=== PATIENT | male | born 1975 ===

== ENCOUNTER 2018-02-19 14:56 | Emergency (ER) | payer BC ==
[2018-02-19 15:12] VITALS: TEMP 98.3
--- NOTE | 2018-02-19 15:35 | ED PDOC ---
HPI: Abdomen History Per: Patient History/Exam Limitations: no limitations Onset/Duration Of Symptoms: Days Outside of [place] travel?: No Current Symptoms Are (Timing): Still Present Pain Scale Rating Of: 4 Location Of Pain/Discomfort: Suprapubic Quality Of Discomfort: Dull Associated Symptoms: Fever, Nausea. denies: Chills, Vomiting Exacerbating Factors: None Alleviating Factors: None Last Bowel Movement: Today <Pearl Bledsoe - Last Filed: 02/19/18 19:04> <Arturo Stahl - Last Filed: 02/19/18 19:53> Time Seen by Provider: 02/19/18 15:17 Chief Complaint (Nursing): Abdominal Pain Additional Complaint(s): CC: abdominal pain HPI: 42 YO Male with no sig PMH of seen in [facility] ED for abdominal pain. Pt states that her symptoms started 1 week ago with cough, cold-flu like symptoms. Pt states that he went to his MD Friday was told that he had a viral infection. Subsequently, pt started having abdominal pain and nausea since Friday, dull pain in the supra-pubic area, associated with nausea, no episodes of emesis, normal BM, last one today. Seen in clinic yesterday and was told to come to the ER if pain persists. Symptoms associated with fever, Tmax this week was 103 last night, resolved after PO Tylenol. Denies dysuria, hematuria, urinary frequency, chills, night sweats. 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 SurgH: testicular surgery as child FH: DM in mother, colon CA in older brother SH: denies smoking, social ETOH and denies illicit drug use Meds: Tylenol Allergies: NDKA (Pearl Bledsoe) Supervising Attending Note <Pearl Bledsoe - Last Filed: 02/19/18 19:04> - Supervising Attending Note The Documented history was done by the: Physician Road Commissioner The documented physical exam was done by the: Physician Road Commissioner The documented procedures were done by the: Physician Road Commissioner - Attestation: I have personally seen and examined this patient.: Yes I have fully participated in the care of the patient.: Yes I have reviewed all pertinent clinical information: Yes <Arturo Stahl - Last Filed: 02/19/18 19:53> - Notes: Notes:: Abd pain Mild headache today, not worst in his life. Gradual and has had similar in the past. His concern is the abd pain. (Arturo Stahl) Past Medical History - Medical History PMH: No Chronic Diseases - Family History Family History: States: Diabetes - Social History Current smoker - smoking cessation education provided: No Alcohol: Social Drugs: Denies <LadiPearl - Last Filed: 02/19/18 19:04> <Arturo Stahl - Last Filed: 02/19/18 19:53> Vital Signs: Last Vital Signs Temp 98.3 F 02/19/18 15:10 Pulse 98 H 02/19/18 15:10 Resp 20 02/19/18 15:10 BP 128/80 02/19/18 15:10 Pulse Ox 98 02/19/18 19:04 - Home Medications Home Medications: Ambulatory Orders Medication Instructions Recorded Ibuprofen [Motrin] 600 mg PO TID 7 Days tab 02/19/18 Nitrofurantoin Macrocrystals 100 mg PO BID #10 cap 02/19/18 [Macrobid] - Allergies Allergies/Adverse Reactions: Allergies Allergy/AdvReac Type Severity Reaction Status Date / Time No Known Allergies Allergy Verified 02/19/18 15:09 Review of Systems Constitutional: Positive for: Fever, Malaise. Negative for: Chills Cardiovascular: Negative for: Chest Pain, Palpitations Respiratory: Negative for: Cough, Shortness of Breath Gastrointestinal: Positive for: Nausea, Abdominal Pain. Negative for: Vomiting Genitourinary Male: Negative for: Dysuria, Frequency, Incontinence Skin: Negative for: Rash, Lesions Neurological: Negative for: Weakness, Numbness <Pearl Bledsoe - Last Filed: 02/19/18 19:04> Physical Exam - Physical Exam Appears: Positive for: No Acute Distress Skin: Positive for: Normal Color Eye Exam: Positive for: Normal appearance, EOMI Cardiovascular/Chest: Positive for: Regular Rate, Rhythm. Negative for: Murmur Respiratory: Positive for: Normal Breath Sounds. Negative for: Crackles, Rales Gastrointestinal/Abdominal: Positive for: Normal Exam, Soft, Tenderness (mild tenderness to palpation of the suprapubic area). Negative for: Distended, Guarding, Rebound Back: Positive for: Normal Inspection. Negative for: L CVA Tenderness, R CVA Tenderness Extremity: Positive for: Normal ROM. Negative for: Tenderness, Pedal Edema Neurologic/Psych: Positive for: Alert, Oriented <Pearl Bledsoe - Last Filed: 02/19/18 19:04> - Physical Exam Respiratory: Positive for: Normal Breath Sounds Gastrointestinal/Abdominal: Positive for: Soft, Tenderness (across lower) <Arturo Stahl - Last Filed: 02/19/18 19:53> - Laboratory Results Result Diagrams: 02/19/18 16:36 02/19/18 16:36 - ECG O2 Sat by Pulse Oximetry: 98 <LadiPearl - Last Filed: 02/19/18 19:04> - Laboratory Results Result Diagrams: 02/19/18 16:36 02/19/18 16:36 Interpretation Of Abn Labs: no acute Urine dip results: Negative for: Leukocyte Esterase, Nitrate - CT Scan/US ct Other Rad Studies (CT/US): Read By Radiologist Other Rad Interpretation: mild bladder wall thick <Arturo Stahl - Last Filed: 02/19/18 19:53> - Progress ED Course And Treament: 42 YO Male with no sig PMH with abdominal pain. VS tachycardia. -cbc, cmp, udip, lipase -Ct abd and pelvis -toradol, zofran and IVF 18:12: Pt states that his pain has resolved at this time. Blood work reviewed with patient, wnl. UA neg for leukes and nitrates Pt endorsed to attending, clinically stable Ct abd and pel pending (Pearl Bledsoe) 1947: Stable. AAOx3. Pain controlled. Tolerated PO. Considering location of pain and ct findings, will send urine for cx and analysis. Will tx for uti. ( Arturo Stahl) Disposition - Patient ED Disposition Is Patient to be Admitted: Transfer of Care (Dr. Stahl) - Disposition Disposition Time: 19:00 <Pearl Bledsoe - Last Filed: 02/19/18 19:04> - Patient ED Disposition Is Patient to be Admitted: No Counseled Patient/Family Regarding: Studies Performed, Diagnosis, Need For Followup, Rx Given - Disposition Disposition: Routine/Home <Arturo Stahl - Last Filed: 02/19/18 19:53> - Clinical Impression Clinical Impression: Abdominal pain, UTI (urinary tract infection) - Disposition Referrals: [facility] [Outside] - 02/20/18 Condition: STABLE Additional Instructions: Return if not better in 3 days. Prescriptions: Ibuprofen [Motrin] 600 mg PO TID 7 Days tab Nitrofurantoin Macrocrystals [Macrobid] 100 mg PO BID #10 cap Instructions: Urinary Tract Infections in Adults, Stomach Ache and Stomach Upset Forms: [facility] (Malay), [facility] ED School/Work Excuse
[2018-02-19] MEDS ORDERED: Sodium Chloride 0.9% 1,000 ML IV STA (15:53)
[2018-02-19] MEDS ORDERED: Iohexol 240 (50 ml) PO ONE (15:53)
[2018-02-19] MEDS ORDERED: Iohexol 240 (50 ml) ONE (16:09)
[2018-02-19 16:51] LABS: BASO % 0.2 % (0.0-2.0); EOS % 0.5 % (0.0-4.0); HEMOGLOBIN 15.4 g/dL (12.0-18.0); LYMPH # 1.3 K/uL (1.0-4.3); MEAN CELL VOLUME 89.1 fl (80.0-94.0); MEAN CORPUSCULAR HEMOGLOBIN 30.5 pg (27.0-31.0); MEAN CORPUSCULAR HGB CONC 34.3 g/dL (33.0-37.0); MEAN PLATELET VOLUME 7.2 fl (7.2-11.7); MONO # 0.7 K/uL (0.0-0.8); MONO % 9.1 % (0.0-10.0); NEUT # 5.3 K/uL (1.8-7.0); NEUT % 72.2 % (50.0-75.0); RBC 5.04 Mil/uL (4.40-5.90); RED CELL DISTRIBUTION WIDTH 12.2 % (11.5-14.5); WHITE BLOOD COUNT 7.3 K/uL (4.8-10.8)
[2018-02-19 17:26] LABS: ALB/GLOB RATIO 1.3 (1.0-2.1); ALBUMIN 4.4 g/dL (3.5-5.0); ALT/SGPT 34 U/L (21-72); AST/SGOT 26 U/L (17-59); BLOOD UREA NITROGEN 9 mg/dl (9-20); CALCIUM 9.5 mg/dL (8.4-10.2); GFR AFRICAN-AMERICAN > 60; GFR NON-AFRICAN AMERICAN > 60; LIPASE 124 U/L (23-300)
[2018-02-19] MEDS ORDERED: Iohexol 300 100 ML IJ ONE (17:41)
[2018-02-19] MEDS ORDERED: Sodium Chloride 0.9% 100 ML ONE (17:42)
--- NOTE | 2018-02-19 18:56 | CT ---
PROCEDURE: CT Abdomen and Pelvis with contrast HISTORY: abd pain COMPARISON: None. TECHNIQUE: Contrast dose: 95 mL Omnipaque 300 Radiation dose: Total exam DLP = 412.1 mGy-cm. This CT exam was performed using one or more of the following dose reduction techniques: Automated exposure control, adjustment of the mA and/or kV according to patient size, and/or use of iterative reconstruction technique. FINDINGS: LOWER THORAX: Unremarkable. LIVER: Unremarkable. No gross lesion or ductal dilatation. GALLBLADDER AND BILE DUCTS: Unremarkable. PANCREAS: Unremarkable. No gross lesion or ductal dilatation. SPLEEN: Unremarkable. ADRENALS: Unremarkable. No mass. KIDNEYS AND URETERS: Unremarkable. No hydronephrosis. No solid mass. VASCULATURE: Unremarkable. No aortic aneurysm. BOWEL: Unremarkable. No obstruction. No gross mural thickening. APPENDIX: Normal appendix. PERITONEUM: Unremarkable. No free fluid. No free air. LYMPH NODES: Unremarkable. No enlarged lymph nodes. BLADDER: Underdistended limited evaluation, but some irregular wall thickening with questionable hazy change in the right anterolateral aspect. REPRODUCTIVE: Unremarkable. BONES: No acute fracture. OTHER FINDINGS: None. IMPRESSION: Underdistended bladder, limiting evaluation, but with mild wall thickening and questionable hazy change in the right anterolateral aspect which may represent cystitis in the appropriate clinical setting. Clinical correlation is recommended.
[2018-02-19 21:03] VITALS: BP 117/97; PULSE 71; RESP 18; O2SAT 100
== END 2018-02-19 21:04 | disposition home or self-care (01) ==
LOC: H.ER 14:56
DX: N39.0 Urinary tract infection, site not specified (principal); R10.9 Unspecified abdominal pain
CPT/HCPCS: 74177; 80053; 83690; 85025; 96374; 96375; 99284; J1885; J2405; J2765; J7030; Q9966; Q9967